=== PATIENT | female | born 1980 | race Hispanic/Latino ===

== ENCOUNTER 2016-12-13 12:04 | Emergency (ER) | payer OTHER ==
[2016-12-13 12:06] VITALS: BMI 41.2
[2016-12-13 12:18] VITALS: BP 128/74; PULSE 80; RESP 20; TEMP 98.5; O2SAT 98
--- NOTE | 2016-12-13 13:02 | ED PDOC ---
HPI: Female Pain Time Seen by Provider: 12/13/16 12:30 Chief Complaint (Nursing): Abdominal Pain Chief Complaint (Provider): abdominal pain History Per: Patient History/Exam Limitations: no limitations Additional Complaint(s): 36yo F in ED 19 weeks P6, states she was recently dx with UTI and Rx macrobid, but developed at yeast infection and Rx terconazole anmd x 2 days with dysuria, and burning and pain. no fever chills, vomiting nasuea. Past Medical History Reviewed: Historical Data, Nursing Documentation, Vital Signs Vital Signs: Last Vital Signs Temp 98.5 F 12/13/16 12:15 Pulse 80 12/13/16 12:15 Resp 20 12/13/16 12:15 BP 128/74 12/13/16 12:15 Pulse Ox 98 12/13/16 12:15 - Medical History PMH: No Chronic Diseases - Surgical History Surgical History: No Surg Hx - Family History Family History: States: Unknown Family Hx - Home Medications Home Medications: Ambulatory Orders Medication Instructions Recorded Vit#96/Ferrous Fum/FA 1 tab PO 07/06/15 [] Nitrofurantoin Macrocrystals 100 mg PO BID #14 cap 12/13/16 [Macrobid] Terconazole 0.8% [Terazol 3 (0.8%) 1 ea VG DAILY #1 tube 12/13/16 Cream] - Allergies Allergies/Adverse Reactions: Allergies Allergy/AdvReac Type Severity Reaction Status Date / Time No Known Allergies Allergy Verified 01/27/16 20:06 Review of Systems ROS Statement: Except As Marked, All Systems Reviewed And Found Negative Constitutional: Negative for: Fever, Chills Genitourinary Female: Positive for: Dysuria Physical Exam - Reviewed Nursing Documentation Reviewed: Yes Vital Signs Reviewed: Yes - Physical Exam Appears: Positive for: Well, Non-toxic, No Acute Distress Head Exam: Positive for: ATRAUMATIC, NORMAL INSPECTION, NORMOCEPHALIC Skin: Positive for: Normal Color, Warm, DRY Cardiovascular/Chest: Positive for: Regular Rate, Rhythm Respiratory: Positive for: CNT, Normal Breath Sounds Gastrointestinal/Abdominal: Positive for: Bowel Sounds, Soft, Tenderness ( suprapubic) Back: Negative for: L CVA Tenderness, R CVA Tenderness Neurologic/Psych: Positive for: Alert, Oriented - Laboratory Results Urine dip results: Positive for: Leukocyte Esterase, Nitrate. Negative for: Blood, Ketones, Glucose, Bilirubin, Protein - ECG O2 Sat by Pulse Oximetry: 98 Medical Decision Making Medical Decision Making: dx: UTI rx: macrobid and terconazole and urein C&S sent. advised to continue f.u with obgyn Disposition - Clinical Impression Clinical Impression: UTI (urinary tract infection) - Patient ED Disposition Is Patient to be Admitted: No Counseled Patient/Family Regarding: Studies Performed, Diagnosis, Need For Followup, Rx Given - Disposition Disposition: Routine/Home Disposition Time: 12:59 Condition: STABLE Prescriptions: Nitrofurantoin Macrocrystals [Macrobid] 100 mg PO BID #14 cap Terconazole 0.8% [Terazol 3 (0.8%) Cream] 1 ea VG DAILY #1 tube Instructions: Urinary Tract Infection in Women (ED)
== END 2016-12-13 13:11 | disposition home or self-care (01) ==
LOC: H.ER 12:04
DX: O23.40 Unspecified infection of urinary tract in pregnancy, unspecified trimester (principal)

== ENCOUNTER 2017-05-01 09:29 | Emergency (ER) | payer OTHER ==
[2017-05-01 11:27] VITALS: BMI 43.4
[2017-05-01] MEDS: Sodium Chloride 0.9% 1,000 ML IV SCH ×2 (11:40→13:02)
--- NOTE | 2017-05-01 14:22 | OBHP ---
Datetime: 05/01/2017 11:09 IP Adm Impression: Term, intrauterine IP Admit Plan: Observation/Evaluation; Discharge home Admit Comment, IP Provider: 36 yo at 37+2 wks w/ EDC 05/20/2017 by LMP, c/w 8 wk u/s p/w SAI today of 7.9, reports that she feels tired today, denies ctxns, VB and reports FM. Pt reports that she is not sure if she is leaking. Pt receives her PN care w/ Dr. Maria Del Carmen Nguyễn. She has had previ ous c/s x 4. PMH: Healthy PSH: c/s x 4 Meds: PNVs All: NKDA Fam hx: N/c Soc hx: pt denies tobacco, alcohol, and illicit drug use POb hx: 03/2009 Emergent c/s at 42 wks, male, 7# 09/2011 Repeat c/s, FT female, 8#5 06/2013 Repeat c/s FT male, 8#9 06/2015 Repeat c/s FT male, 7#8 2016 SAB, no D_C PGyn hx: monthly periods, denies h/o STDs, reports abn paps since 2008 PE: AFVSS Gen'l: appears comfortable lying in bed Abd: soft, NT, gravid, obese Ext: NT Speculum: as above VE: cervix extremely high A/P: 36 yo at 37+2 wks w/ SAI 7.9 today, no evidence of ruptured membranes on exam Pt given IVF for uterine irritability NST reactive Pt discharged home after 2 liters of fluid given Pt given labor precautions Pt has a f/u appoint w/ MFM u/s on Thu., 05/04/2017 Extremities - PN: Normal Abdomen - PN: Normal General - PN: Normal FHR - Baseline A Provider: 140s Membranes, Provider: Intact Contraction Comments Provider: irritability Comments, ACOG Physical Exam: Speculum: white d/c, negative nitrazine Pool Provider: Negative Nitrazine Provider: Negative Vital Signs Provider: Reviewed IP Chief Complaint: Suspected ruptured membranes NICHD Variability Prov Fetus A: Moderate 6-25bpm NICHD Accel Fetus A IP Provider: 15X15 Dilatation, Provider: 0 Effacement, Provider: 0 Station, Provider: -3 Genitourinary Exam: Normal
[2017-05-03 02:02] VITALS: BP 113/65; PULSE 98; TEMP 98
== END 2017-05-01 14:10 | disposition home or self-care (01) ==
LOC: H.EROB2 09:29
DX: O47.1 False labor at or after 37 completed weeks of gestation (principal); Z3A.37 37 weeks gestation of pregnancy; Z87.59 Personal history of other complications of pregnancy, childbirth and the puerperium
CPT/HCPCS: 99283; J7040

== ENCOUNTER 2017-05-12 17:48 | Emergency (ER) | payer OTHER ==
--- NOTE | 2017-05-12 21:14 | OBHP ---
Datetime: 05/12/2017 17:20 IP Adm Impression: Term, intrauterine ; Intact Membranes IP Admit Plan: Discharge home Admit Comment, IP Provider: IUP at 38w 6d had 1-2h no FM. When she walked into unit she fel t +FM. No CTX; no VB; No SROM PNC: Dr Bhakta at [facility] records rev'd PMH: denies PSH: C/S x 4 POBH: C/S x 4 PGYNH: NKA PSoH: deneis smoking EOTH drugs A: IUp at 38+w decreased FM ... +FM while in L_D PLAN: discharge home labor instructions follow up tmrw for scheduled C/S Extremities - PN: Normal Abdomen - PN: Normal Neurologic - PN: Normal HEENT - PN: Normal General - PN: Normal FHR - Baseline A Provider: 140 Contraction Comments Provider: none Comments, ACOG Physical Exam: ROS: General: no weakness; no fatigue HEENT: no MARTIN; no visual dist CV: no CP; no palpitations Resp: No cough; no SOB GI: No N/V/D : no F/U/D MS: no joint pain IP Hx Assessment: The History has been Reviewed and is Current Vital Signs Provider: Within Normal Limits Vital Signs Provider Details: BP 120/70 manual by nurse IP Chief Complaint: Decreased movement NICHD Variability Prov Fetus A: Moderate 6-25bpm NICHD Accel Fetus A IP Provider: 15X15 FHR Category Provider Fetus A: Category I
--- NOTE | 2017-05-12 21:16 | OBDCSUM ---
Datetime: 05/12/2017 19:22 Discharged to, Provider: Home Follow up at, Provider: For C/Section tomorrow Disch Instr Activity: Normal activity Disch Instr Diet: Regular Discharge Instructions, Provider: Routine instructions given Discharge Time: 05/12/2017 19:20 Follow up in weeks, Provider: 05/13/2017 Disch Referrals: None Contraception discussed, Prov: Yes Discharge Diagnosis Prov Other: deareased FM
== END 2017-05-12 19:30 | disposition home or self-care (01) ==
LOC: H.EROB2 17:48 → H.EROB 18:25 → H.EROB2 19:30
DX: O36.8131 Decreased fetal movements, third trimester, fetus 1 (principal); Z3A.38 38 weeks gestation of pregnancy

== ENCOUNTER 2018-07-06 17:42 | Emergency (ER) | payer BC, OTHER ==
[2018-07-06 17:42] VITALS: BMI 43.4
[2018-07-06 18:18] VITALS: BP 124/67; PULSE 120; RESP 18; O2SAT 99
--- NOTE | 2018-07-06 19:32 | ED PDOC ---
History of Present Illness History of Present Illness: Pt presents to the ED with her daughter (who is also a patient with similar symptoms); pt symptoms include two days of sore throat, cough, congestion, mild low grade fever without nausea vomiting or diarhhea HPI: Influenza Time Seen by Provider: 07/06/18 18:37 Chief Complaint: Flu-like Symptoms Chief Complaint (Provider): flu like symptoms History Per: Patient Exam Limitations: no limitations Onset/Duration Of Symptoms: Days (two) Symptoms include: fever, bodyaches, sore throat, cough, nasal congestion. denies: vomiting, diarrhea, difficulty breathing Sick Contacts (Context): Family Member(s) (daughter (who is also a patient)) Hx Influenza Vaccination: Yes Risk factors for flu complications: Yes: obesity (BMI > 40) Past Medical History Reviewed: Historical Data, Nursing Documentation, Vital Signs Vital Signs: Last Vital Signs Temp 100.6 F H 07/06/18 19:06 Pulse 120 H 07/06/18 18:15 Resp 18 07/06/18 18:15 BP 124/67 07/06/18 18:15 Pulse Ox 99 07/06/18 18:15 - Medical History PMH: No Chronic Diseases - Family History Family History: States: Unknown Family Hx - Immunization History Hx Influenza Vaccination: Yes - Home Medications Home Medications: Ambulatory Orders Medication Instructions Recorded Vits96/Iron Fum/Folic 1 tab PO DAILY 07/06/15 [ Tablet] Docusate [Colace] 100 mg PO BID #30 cap 05/17/17 Ibuprofen [Motrin Tab] 800 mg PO TID PRN 30 Days tab 05/17/17 oxyCODONE/Acetaminophen [Percocet 1 tab PO Q4 PRN #30 tab 05/17/17 5/325 mg Tab] Amoxicillin/Clavulanate [Augmentin 1 tab PO BID #20 tab 07/06/18 875 MG-125 MG] - Allergies Allergies/Adverse Reactions: Allergies Allergy/AdvReac Type Severity Reaction Status Date / Time No Known Allergies Allergy Verified 07/06/18 18:14 Review of Systems ROS Statement: Except As Marked, All Systems Reviewed And Found Negative Constitutional: Positive for: Fever ENT: Positive for: Nose Discharge, Nose Congestion, Throat Pain Respiratory: Positive for: Cough Physical Exam - Reviewed Nursing Documentation Reviewed: Yes Vital Signs Reviewed: Yes - Physical Exam Appears: Positive for: Well, Non-toxic, No Acute Distress. Negative for: Uncomfortable Head Exam: Positive for: ATRAUMATIC, NORMAL INSPECTION Skin: Positive for: Normal Color, Warm, Dry. Negative for: Diaphoresis, Pallor, Rash Eye Exam: Positive for: Normal appearance, EOMI, PERRL. Negative for: Nystagmus, Periorbital swelling, Periorbital tenderness ENT: Positive for: Pharynx Is (mildly erythematous bilaterally without tonsillar edema or exudate), Nasal Congestion, Pharyngeal Erythema. Negative for: Tonsillar Exudate, Tonsillar Swelling Cardiovascular/Chest: Positive for: Regular Rate, Rhythm Respiratory: Positive for: Normal Breath Sounds. Negative for: Decreased Breath Sounds, Accessory Muscle Use, Crackles, Rales, Rhonchi, Stridor, Wheezing, Respiratory Distress Pulses-Carotid (L): 2+ Pulses-Carotid (R): 2+ Pulses-Radial (L): 2+ Pulses-Radial (R): 2+ Medical Decision Making Medical Decision Making: STrep negative influenza negatie will treat for pharyngitis with augmentin follow up with PMD in 48 hours - ECG O2 Sat by Pulse Oximetry: 99 Disposition - Clinical Impression Clinical Impression: Pharyngitis - Patient ED Disposition Is Patient to be Admitted: No Doctor Will See Patient In The: Office Counseled Patient/Family Regarding: Studies Performed, Diagnosis, Need For Followup, Rx Given - Disposition [facility] Disposition: Routine/Home Disposition Time: 19:47 Condition: STABLE Additional Instructions: follow up with PMD in 48 hour tylenol and motrin for fever control Prescriptions: Amoxicillin/Clavulanate [Augmentin 875 MG-125 MG] 1 tab PO BID #20 tab Forms: [employer] (Japanese)
[2018-07-06 19:45] VITALS: TEMP 100.1
== END 2018-07-06 20:30 | disposition home or self-care (01) ==
LOC: H.ER 17:42
DX: J02.9 Acute pharyngitis, unspecified (principal)

== ENCOUNTER 2018-09-05 10:07 | Emergency (ER) | payer BC ==
[2018-09-05 10:23] VITALS: BP 113/75; PULSE 101; RESP 18; TEMP 98; O2SAT 97; BMI 36.5
--- NOTE | 2018-09-05 11:14 | ED PDOC ---
HPI: CCC, URI, Sore Throat Time Seen by Provider: 09/05/18 10:29 Chief Complaint (Nursing): ENT Problem Chief Complaint (Provider): Fever and sore throat History Per: Patient History/Exam Limitations: no limitations Onset/Duration Of Symptoms: Hrs (tody morning) Additional Complaint(s): 37 year old female presents to the ED for an evaluation of subjective fever and sore throat onset today morning. She has received her influenza vaccination and does not have any medical problems. Otherwise, denies cough, runny nose, shortness of breath or abdominal pain. PMD: [facility] Past Medical History Reviewed: Historical Data, Nursing Documentation, Vital Signs Vital Signs: Last Vital Signs Temp 98 F 09/05/18 10:22 Pulse 101 H 09/05/18 10:22 Resp 18 09/05/18 10:22 BP 113/75 09/05/18 10:22 Pulse Ox 97 09/05/18 10:22 - Medical History PMH: No Chronic Diseases Denies: Depression, Diabetes, HTN - Surgical History Surgical History: (3x) - Family History Family History: States: Unknown Family Hx - Social History Current smoker - smoking cessation education provided: No Alcohol: None Drugs: Denies - Immunization History Hx Influenza Vaccination: Yes - Home Medications Home Medications: Ambulatory Orders Medication Instructions Recorded Vits96/Iron Fum/Folic 1 tab PO DAILY 07/06/15 [ Tablet] Docusate [Colace] 100 mg PO BID #30 cap 05/17/17 Ibuprofen [Motrin Tab] 800 mg PO TID PRN 30 Days tab 05/17/17 oxyCODONE/Acetaminophen [Percocet 1 tab PO Q4 PRN #30 tab 05/17/17 5/325 mg Tab] Amoxicillin/Clavulanate [Augmentin 1 tab PO BID #20 tab 07/06/18 875 MG-125 MG] - Allergies Allergies/Adverse Reactions: Allergies Allergy/AdvReac Type Severity Reaction Status Date / Time No Known Allergies Allergy Verified 07/06/18 18:14 Review of Systems ROS Statement: Except As Marked, All Systems Reviewed And Found Negative Constitutional: Positive for: Fever (subjective) ENT: Positive for: Throat Pain. Negative for: Nose Discharge Respiratory: Negative for: Cough, Shortness of Breath Gastrointestinal: Negative for: Nausea, Vomiting, Abdominal Pain, Diarrhea Physical Exam - Reviewed Nursing Documentation Reviewed: Yes Vital Signs Reviewed: Yes - Physical Exam Appears: Positive for: Well, Non-toxic, No Acute Distress Head Exam: Positive for: ATRAUMATIC, NORMAL INSPECTION, NORMOCEPHALIC Skin: Positive for: Normal Color, Warm, Dry. Negative for: Rash Eye Exam: Positive for: EOMI, Normal appearance, PERRL ENT: Positive for: Normal ENT Inspection Neck: Positive for: Normal, Painless ROM, Supple. Negative for: Decreased ROM Cardiovascular/Chest: Positive for: Regular Rate, Rhythm. Negative for: Murmur Respiratory: Positive for: Normal Breath Sounds. Negative for: Decreased Breath Sounds Gastrointestinal/Abdominal: Positive for: Normal Exam, Soft. Negative for: Tenderness Back: Positive for: Normal Inspection. Negative for: L CVA Tenderness, R CVA Tenderness Extremity: Positive for: Normal ROM. Negative for: Tenderness, Pedal Edema, Deformity Neurologic/Psych: Positive for: Alert, Oriented (x3). Negative for: Motor/Sensory Deficits - ECG O2 Sat by Pulse Oximetry: 97 (RA) Pulse Ox Interpretation: Normal Medical Decision Making Medical Decision Making: Time: 1045 Impression: viral syndrome Plan: Influenza A B Rapid strep group A antigen Reevaluation Scribe Attestation: Documented by Gale Shabazz, acting as a scribe for Isis Williamson MD. Provider Scribe Attestation: All medical record entries made by the Scribe were at my direction and personally dictated by me. I have reviewed the chart and agree that the record accurately reflects my personal performance of the history, physical exam, medical decision making, and the department course for this patient. I have also personally directed, reviewed, and agree with the discharge instructions and disposition Disposition - Clinical Impression Clinical Impression: Viral syndrome - Patient ED Disposition Is Patient to be Admitted: No Doctor Will See Patient In The: Office Counseled Patient/Family Regarding: Diagnosis, Need For Followup - Disposition [facility]] [facility] [Outside] Disposition: Routine/Home Disposition Time: 11:39 Condition: STABLE Instructions: Viral Syndrome (DC) Forms: [facility] [place] (Iranian), [facility] ED School/Work Excuse - POA Present On Arrival: None
== END 2018-09-05 12:10 | disposition home or self-care (01) ==
LOC: H.ER 10:07
DX: B34.9 Viral infection, unspecified (principal)